=== PATIENT | female | born 1985 | race Hispanic/Latino ===

== ENCOUNTER 2019-07-02 07:12 | Outpatient (CLI) | payer OTHER ==
[2019-07-02 07:42] LABS: PLATELET COUNT 255 K/uL (152-353)
[2019-07-02 08:06] LABS: POTASSIUM 4.3 mmol/L (3.6-5.2)
== END 2019-07-02 19:51 | disposition home or self-care (01) ==
LOC: LABW 07:12
PROVIDERS: Physician Assistant
DX: Z68.43 Body mass index [BMI] 50.0-59.9, adult (principal); R53.83 Other fatigue
CPT/HCPCS: 36415; 80053; 80061; 82306; 84436; 84443; 85027

== ENCOUNTER 2020-07-24 10:38 | Outpatient (CLI) | payer OTHER ==
[2020-07-24 10:55] LABS: PLATELET COUNT 266 K/uL (152-353)
[2020-07-24 11:27] LABS: POTASSIUM 4.1 mmol/L (3.6-5.2)
== END 2020-07-24 22:42 | disposition home or self-care (01) ==
LOC: LABW 10:38
PROVIDERS: ATTEND Nurse Practitioner
DX: E55.9 Vitamin D deficiency, unspecified (principal); Z68.43 Body mass index [BMI] 50.0-59.9, adult
CPT/HCPCS: 36415; 80053; 80061; 82306; 82607; 84443; 85027